=== PATIENT | male | born 1965 | race Caucasian/White ===

== ENCOUNTER 2018-05-11 09:56 | Inpatient (IN) | payer MEDICAID, OTHER ==
[~2018-05-11] VITALS: Ht 177.8 cm; Wt 63.5 kg
[2018-05-11] MEDS ORDERED: TRAZ-219 PO (10:06)
[2018-05-11] MEDS ORDERED: RISP.5 PO (10:06)
[2018-05-11] MEDS ORDERED: GABA-529 PO (10:06)
[2018-05-11] MEDS ORDERED: LORazepam 2 MG TABLET PO ONE (10:30)
[2018-05-11] MEDS ORDERED: HALOPERIDOL 5 MG TABLET PO ONE (10:30)
[2018-05-11 10:49] LABS: BASOPHILS % (AUTO) 0.6 % (0.0-2.0); HEMATOCRIT 44.5 % (41-53); HEMOGLOBIN 15.6 g/dL (13.5-17.5); LYMPHOCYTES # (AUTO) 0.9 K/uL (1.0-4.8); LYMPHOCYTES % (AUTO) 13.4 % (22.0-44.0); MEAN CORPUSCULAR HGB CONC 35.2 G/dL (31.0-37.0); MEAN CORPUSCULAR VOLUME 94 fL (80-100); MONOCYTES # (AUTO) 0.6 K/uL (0.1-1.0); MONOCYTES % (AUTO) 8.3 % (2.0-9.0); NEUTROPHILS # (AUTO) 5.4 K/uL (1.8-7.7); NEUTROPHILS % (AUTO) 75.7 % (40.0-70.0); PLATELET COUNT (AUTO) 168 K/uL (150-450); RED BLOOD CELL COUNT(AUTO) 4.75 MIL/uL (4.50-5.90); RED CELL DISTRIBUTION WIDTH 13.3 % (11.5-14.5)
[2018-05-11 10:56] LABS: ANION GAP 9 mmol/L (8-16); CALCIUM, TOTAL 8.7 mg/dL (8.8-10.5); CARBON DIOXIDE 24 mmol/L (22-29); CHLORIDE 104 mmol/L (98-107); CREATININE 0.78 mg/dL (0.60-1.30); GLOMERULAR FILTR. RATE CALC > 60 mL/min (>60); GLUCOSE,RANDOM 107 mg/dL (70-110); POTASSIUM 3.7 mmol/L (3.5-5.1); SODIUM SERUM 137 mmol/L (136-145); UREA NITROGEN, BLOOD 5 mg/dL (7-18)
[2018-05-11] MEDS ORDERED: HALOPERIDOL 5 MG TABLET PO PRN (11:15)
[2018-05-11] MEDS ORDERED: ZOLPIDEM TARTRATE 10 MG TABLET PO PRN (11:15)
[2018-05-11] MEDS ORDERED: LORazepam 2 MG TABLET PO PRN (11:15)
[2018-05-11 12:59] LABS: AMPHET/METH SCREEN,URINE POSITIVE (NEGATIVE); BARBITURATE SCREEN, URINE NEGATIVE (NEGATIVE); BENZODIAZEPINES SCREEN,URINE NEGATIVE (NEGATIVE); CANNABINOID SCREEN,URINE POSITIVE (NEGATIVE); COCAINE SCREEN,URINE NEGATIVE (NEGATIVE); METHADONE SCREEN, URINE NEGATIVE (NEGATIVE); OPIATE SCREEN,URINE NEGATIVE (NEGATIVE); PHENCYCLIDINE SCREEN,URINE NEGATIVE (NEGATIVE)
[2018-05-11 15:29] VITALS: BP 110/65
[2018-05-11 16:00] VITALS: BP 110/65
[2018-05-12 05:44] VITALS: BP 112/61
[2018-05-12 08:33] VITALS: BP 129/82
[2018-05-12 09:23] LABS: CHOL/HDL RATIO 1.5 (4.2-7.3)
[2018-05-12] MEDS ORDERED: MAG HYDROX/AL HYDROX/SIMETH ES 30 ML SUSPENSION UDCUP PO PRN (11:00)
[2018-05-12] MEDS ORDERED: ACETAMINOPHEN 325 MG TABLET PO PRN (11:00)
[2018-05-12] MEDS ORDERED: IBUPROFEN 400 MG TABLET PO PRN (11:00)
[2018-05-12] MEDS ORDERED: ALBUTEROL SULFATE HFA 90 MCG/PUFF 8 GM INHALER IH PRN (11:00)
[2018-05-12] MEDS ORDERED: MAGNESIUM HYDROXIDE SUSPENSION 30 ML UDCUP PO PRN (11:00)
[2018-05-12] MEDS ORDERED: DOCUSATE SODIUM 100 MG CAPSULE PO PRN (11:00)
[2018-05-12] MEDS ORDERED: PETROLATUM,WHITE 71 GM JELLY TP PRN (11:00)
[2018-05-12] MEDS ORDERED: ONDANSETRON HCL 4 MG TABLET PO PRN (11:00)
[2018-05-12] MEDS: GABAPENTIN 100 MG CAPSULE PO SCH (12:01)
[2018-05-12] MEDS: RisperiDONE 1 MG TABLET PO SCH ×2 (12:01→21:44)
[2018-05-12 16:08] VITALS: BP 119/80
[2018-05-13 06:47] VITALS: BP 121/68
[2018-05-13 08:42] VITALS: BP 116/64
[2018-05-13] MEDS: RisperiDONE 1 MG TABLET PO SCH ×2 (08:48→09:00)
[2018-05-13] MEDS: GABAPENTIN 100 MG CAPSULE PO SCH ×2 (08:48→09:00)
[2018-05-13] MEDS: NICOTINE 14 MG/24 HOUR PATCH TD SCH ×2 (08:48→09:00)
[2018-05-13 09:19] LABS: HEMOGLOBIN A1C 5.4 % (4.5-6.2)
[2018-05-13 09:50] LABS: CHOL/HDL RATIO 1.4 (4.2-7.3); THYROID STIMULATING HORMONE 2.07 uIU/mL (0.36-3.74)
[2018-05-13] MEDS ORDERED: RISP1 PO (12:43)
== END 2018-05-13 14:45 | disposition home or self-care (01) | DRG 750 ==
LOC: EMS 09:57 → B2S 11:43
DX: F25.1 Schizoaffective disorder, depressive type (principal); E83.51 Hypocalcemia; R45.851 Suicidal ideations; F19.10 Other psychoactive substance abuse, uncomplicated; F10.10 Alcohol abuse, uncomplicated; F12.10 Cannabis abuse, uncomplicated; F15.10 Other stimulant abuse, uncomplicated; Z79.899 Other long term (current) drug therapy; Z71.51 Drug abuse counseling and surveillance of drug abuser; Z71.41 Alcohol abuse counseling and surveillance of alcoholic
CPT/HCPCS: 83036; 84443; 99285; G0480